=== PATIENT | female | born 1980 | race Caucasian/White ===

== ENCOUNTER 2020-04-12 08:29 | Outpatient (CLI) | payer BC, SELFPAY ==
--- NOTE | ~2020-04-12 | MMUS_ITS ---
EXAMINATION: MM diagnostic rehan BI w barbara, US breast LT limited HISTORY: Palpable lump at the 6:00 location of the left breast TECHNIQUE: Craniocaudal, mediolateral, and mediolateral oblique 3-D tomosynthesis images of the breas ts were performed and synthetic 2-D images were generated. CAD analysis was submitted and interpreted . High resolution limited left breast ultrasound was performed. COMPARISON: 05/09/2016, 02/05/2015, 04/29/2012 BREAST PARENCHYMAL COMPOSITION: The breasts are almost entirely fatty. FINDINGS: MAMMOGRAPHIC FINDINGS: Right breast: There is no evidence of suspicious mass, calcification, or architectural distortion to suggest malignancy. There has been no suspicious interval change. Left breast: There is a 1.4 x 0.5 cm equal density mass with indistinct margins at the 6:00 location 3.5 cm from the nipple corresponding to the palpable abnormality of concern. ULTRASOUND: There is a 1.6 x 0.6 cm oval, circumscribed, parallel, hypoechoic mass with internal vascularity at t he 6:00 location 4 cm from the nipple corresponding to the palpable abnormality of concern. IMPRESSION: 1. Suspicious left breast mass. 2. Ultrasound-guided biopsy is recommended. BI-RADS category 4, suspicious findings. Reviewed, dictated and finalized at location A. CTURAL DRAFTER IMPRESSION: 1. Suspicious left breast mass. 2. Ultrasound-guided biopsy is recommended. BI-RADS category 4, suspicious findings.
--- NOTE | ~2020-04-12 | US_ITS ---
EXAMINATION: US pelvic complete DATE: 04/12/2020 10:18 INDICATION: Menorrhagia Comparison:No prior studies for comparison. TECHNIQUE: Multiple transabdominal sonographic images of the pelvis performed. FINDINGS: The uterus measures 12.4 x 4.1 x 7.1 cm. The endometrial complex measures 6 mm. The right ovary measures 2.7 x 1.9 x 2.9 cm and the left ovary measures 3.3 x 2 x 3.4 cm. There are small follicles in each ovary. There is no free fluid in the pelvis. There are no abnormal masses seen on either side. IMPRESSION: 1. Normal pelvic ultrasound. Reviewed, dictated and finalized at location A. PROCESSING CHEMIST
== END 2020-04-12 08:30 ==
LOC: MICIMG 08:30
PROVIDERS: PCP Physician Assistant; Visit Provider Nurse Practitioner
DX: N63.20 Unspecified lump in the left breast, unspecified quadrant (principal); N92.0 Excessive and frequent menstruation with regular cycle; R92.8 Other abnormal and inconclusive findings on diagnostic imaging of breast
CPT/HCPCS: 76642; 76856; 77062; 77066; G0279

== ENCOUNTER 2020-04-12 08:33 | Outpatient (CLI) | payer BC, SELFPAY ==
--- NOTE | ~2020-04-12 | CT_ITS ---
EXAMINATION: CT abdomen pelvis wo con DATE: 04/12/2020 09:54 INDICATION: Right flank pain. Nausea. TECHNIQUE: Computed tomography (CT) of the abdomen and pelvis was performed without intravenous contr ast. Automated exposure control and iterative reconstruction technique were employed. Exam dose: 112 0.54 mGy-cm total exam DLP. COMPARISON: None. FINDINGS: The lung bases are clear of infiltrate or consolidation. Normal heart size. No pericardial or pleural effusion. Hepatic steatosis. No hepatic space-occupying mass lesion is evident. The gallbladder is present. No bile duct or pancreatic duct dilatation. No pancreatic mass lesion or calcification. Normal splenic s ize. Normal morphology of the adrenal glands. There is severe left hydronephrosis with very severe thinning of the left renal cortex. There is a la rge calculus at the left ureteropelvic junction measuring up to 9 x 13 x 19 mm dimension, with attenu ation of 1350 Hounsfield units. Several additional smaller calcifications of the left kidney are note d. There is moderate right hydronephrosis. There is a 13 x 13.5 x 22.6 mm right renal pelvic calculus wi th attenuation of approximately 900 Hounsfield units. 2. Additional approximately 8mm and 10 mm lower pole nonobstructing right renal calculi are noted. No ureteral calculus is noted on either side. Normal caliber of the abdominal aorta. No intraperitoneal or retroperitoneal or pelvic mass lesion or adenopathy or ascites. The uterus, adnexal areas and urinary bladder are unremarkable. No suspicious osteolytic or osteoblastic lesions. Degenerative spurring of the lower thoracic spine. Normal appendix. There is a medially situated cecum and appendix, consistent with retained cecal mese ntery. No bowel obstruction, bowel wall thickening, pneumatosis or intraperitoneal free air. IMPRESSION: 9 x 13 x 19 mm obstructing left renal pelvic calculus with severe left hydronephrosis, s evere thinning of the left renal cortex 13 x 13.5 x 22.6 mm right renal pelvic calculus with moderate right hydronephrosis Additional bilateral nonobstructing smaller renal calculi Hepatic steatosis Reviewed, dictated and finalized at Location A. Reviewed, dictated and finalized at location B. MENT CONTROL ASSISTANT IMPRESSION: 9 x 13 x 19 mm obstructing left renal pelvic calculus with severe left hydronephrosis, severe thinning of the left renal cortex 13 x 13.5 x 22.6 mm right renal pelvic calculus with moderate right hydronephro sis Additional bilateral nonobstructing smaller renal calculi Hepatic steatosis
== END 2020-04-12 08:34 ==
PROVIDERS: PCP Physician Assistant; Visit Provider Physician Assistant
DX: R10.9 Unspecified abdominal pain (principal); N20.0 Calculus of kidney; K76.0 Fatty (change of) liver, not elsewhere classified
CPT/HCPCS: 74176

== ENCOUNTER → 2020-06-06 11:48 | Outpatient (CLI) | payer BC, SELFPAY ==
--- NOTE | ~2020-06-06 | XR_ITS ---
EXAMINATION: XR abdomen/kub 1V INDICATION: Nephrolithiasis TECHNIQUE: Supine views of the abdomen were obtained on 2 radiographs. COMPARISON: 04/12/2020 FINDINGS: There are bilateral internal ureteral stents in expected position. There is a 7 mm stone or stone fragment adjacent to the proximal aspect of the left internal ureteral stent in the expected l ocation of the ureteropelvic junction. Stone fragments measuring up to 3 mm are seen in the left abisai l pelvis adjacent to the coiled portion of the stent. There are multiple stones or stone fragments in the lower poles of the kidneys. The largest conglomerate of stones or stone fragments in the left ki dney lower pole measures up to 2.3 cm. The largest on the right measures up to 1.9 cm. The bowel gas pattern is normal. IMPRESSION: 1. Bilateral internal ureteral stents with stones adjacent to the proximal aspect of the left interna l ureteral stent. 2. Bilateral nephrolithiasis. Reviewed, dictated and finalized at location A. PING CAR CONDUCTOR IMPRESSION: 1. Bilateral internal ureteral stents with stones adjacent to the proximal aspe ct of the left internal ureteral stent. 2. Bilateral nephrolithiasis.
== END ==
DX: N20.0 Calculus of kidney (principal); Z96.0 Presence of urogenital implants
CPT/HCPCS: 74018

== ENCOUNTER 2023-06-07 12:53 | Outpatient (CLI) | payer BC, SELFPAY ==
--- NOTE | ~2023-06-07 | US_ITS ---
EXAMINATION: US pelvic complete DATE: 06/07/2023 13:17 INDICATION: Abnormal uterine bleeding TECHNIQUE: Multiple transabdominal sonographic images of the pelvis were obtained. COMPARISON: 04/12/2020 FINDINGS: The uterus measures 11.3 x 4.5 x 6.2 cm. The endometrial complex measures 4 mm. The right o vary measures 4.9 x 2.8 x 3.5 cm. The left ovary measures 3.2 x 2.6 x 1.8 cm. There is normal vascula r flow in the ovaries. There is no free fluid in the pelvis. IMPRESSION: 1. No sonographic correlate for the patient's symptoms. Reviewed, dictated and finalized at location F. TY COURT CLERK
== END 2023-06-07 12:54 ==
LOC: MICIMG 12:54
PROVIDERS: PCP Physician Assistant; Visit Provider Nurse Practitioner
DX: N93.8 Other specified abnormal uterine and vaginal bleeding (principal); R10.2 Pelvic and perineal pain
CPT/HCPCS: 76830; 76856

== ENCOUNTER → 2023-07-01 01:48 | Day surgery (SDC) | payer BC, SELFPAY ==
[2023-06-24 09:43] VITALS: BMI 32.3
--- NOTE | 2023-06-24 09:53 | SUR.PREOP ---
Report to the Outpatient Waiting Room, entrance under the green pavilion located off [facility], at time 0900 on date 07/01/23. Planned Procedure Time: 1100. Time changes happen often and if your time is changed the preop area will call you the afternoon before. - You and your visitor will be asked to self-screen and do not enter if you have any COVID symptoms. - A mask is optional within the hospital at this time. Patients may have clear liquids (water, carbonated beverages, clear teas, apple juice) until 3 hours prior to surgery with a maximum of 20 ounces. - No food from midnight until time of surgery Before 0800 am - Infants may have breast milk until 4 hours before surgery, infant formula 6 hours prior to surgery. - Children will be allowed to drink immediately following surgery. If applicable, please bring a bottle or sippy cup to assist with drinking. Juice, water, soda, and popsicles are readily available. For infants on formula, please bring formula the day of surgery. Pacifiers are allowed. Take the following medications with a SIP of water the morning of surgery: ___metoprolol DO NOT STOP ANY OF YOUR OTHER PRESCRIPTION MEDICATIONS PRIOR TO SURGERY ?EXCEPT THE FOLLOWING Medications to discontinue per physician ___losartin day of surgery. supplements and vitamins 3 days prior to surgery__ Date to take last dose Please no make-up, nail frisian, hairspray, perfume, deodorant, or body powder the day of surgery. No jewelry (including any body piercings) or valuables the day of surgery, leave them at home. Please take a shower or bath the night before, or the morning of, surgery with an antibacterial soap. Wear comfortable, loose fitting clothing. Children are encouraged to wear pajamas. - Jewelry must be removed prior to entering the operating room. Rings and piercings that are not removed may be cut off. - The hospital will not accept responsibility for valuables. - Please leave all valuables, including medications, at home the day of surgery. If you are going home after surgery, a licensed nascar driver must drive you home. - NO public transportation without another adult if you receive anesthesia. - We recommend that an adult stay with you for 24 hours following discharge. - We also recommend that you do not drive, make important decision, drink alcoholic beverages, or take any drugs that were not prescribed by your health care provider for at least 24 hours after your discharge time. For Pediatric surgeries, we recommend two adults accompany the child home. Follow any additional instructions given to you from your surgeon. If you or anyone in your household have experienced Covid symptoms in the past week, please notify your surgeon or the nurse liaison at the phone number below for possible testing. Telephone instructions given to patient and asked if any additional questions and then verbalized understanding. Patient advised to call surgeon office or pre surgery nurse liaison [phone] if any additional questions.
--- NOTE | 2023-07-01 09:20 | WPDHPUPDATE1 ---
History and Physical Update Update Date/Time: 07/01/23 09:20 History and Physical has been reviewed, including an updated exam of the patient. There are NO changes in the patient's condition. Risks, benefits, and alternatives have been discussed and questions answered. Patient agrees to proceed with procedure.
--- NOTE | 2023-07-01 09:21 | P.HP_ITS ---
History of Present Illness History of Present Illness Consent: Risks, benefits, and alternatives have been discussed and questions answered. Patient agrees to proceed with procedure. Chief complaint: Menorrhagia Narrative: Kimberlee Banda is a 43 year old female with frequent and heavy cycles. Pelvic ultrasound was normal. It was recommended to undergo D&C hysteroscopy. Risks of infection, bleeding, perforation, and possible pathology are discussed. Patient voices understanding and agrees to proceed. Review of Systems Review of Systems: not repeated day of surgery; patient states no changes in status [facility] Past Medical History Medical History (Updated 07/01/23 @ 09:25 by Kimberlee Contreras MD) Borderline diabetes BRCA2 gene mutation positive HTN (hypertension) Surgical History Surgical History (Updated 07/01/23 @ 09:24 by Kimberlee Contreras MD) History of bilateral breast reduction surgery History of x2 History of gastric restrictive surgery gastric sleeve June of 2021 History of left breast biopsy Hx of ALINE Social History Social History Smoking status: Never smoker Living arrangements: with family Meds Home Medications and Allergies Home Medications Medication Instructions Recorded Confirmed Type calcium citrate 150 mg capsule 150 mg PO BID 06/24/23 06/24/23 History ferrous sulfate 325 mg (65 mg 325 mg PO BID 06/24/23 06/24/23 History iron) tablet losartan 100 mg tablet 100 mg PO DAILY 06/24/23 06/24/23 History metoprolol succinate 200 mg 200 mg PO DAILY 06/24/23 06/24/23 History tablet,extended release 24 hr multivitamin 1 tablet PO DAILY 06/24/23 06/24/23 History vitamin B complex 1 tablet PO DAILY 06/24/23 06/24/23 History vortioxetine 10 mg tablet 10 mg PO HS 06/24/23 06/24/23 History (Trintellix) zolpidem 10 mg tablet 10 mg PO HS PRN Sleep 06/24/23 06/24/23 History Allergies Allergy/AdvReac Type Severity Reaction Status Date / Time prochlorperazine Allergy Intermediate ANXIETY Unverified 06/18/16 16:06 morphine Allergy Unknown ITCHING Verified 06/18/16 16:06 Exam Const: General: healthy appearing and alert Orientation/consciousness: patient oriented x3 Resp: Effort & Inspection: normal respiratory effort : External Female Exam: normal external appearance Speculum Exam - Vagina: normal appearance of the vagina and normal vaginal discharge Speculum Exam - Cervix: normal appearance of the cervix Bimanual exam- vagina & uterus: uterine size normal and consistency normal Bimanual Exam- Adnexa, other: normal adnexae and No adnexal tenderness Neuro: General: patient oriented x3 Assessment and Plan Assessment and plan (1) Menorrhagia: Code(s): N92.0 - Excessive and frequent menstruation with regular cycle Status: Acute Assessment and Plan: plan to proceed with D&C hysteroscopy
[2023-07-01] MEDS: ACETAMINOPHEN 500 MG TABLET 1000 MG PO (09:47)
[2023-07-01 09:57] VITALS: BP 103/60; PULSE 87; RESP 18; TEMP 37.1; O2SAT 100
--- NOTE | 2023-07-01 10:07 | P.PNAN_ITS ---
Anes - Initial Pre Proc Eval Procedure: Operation Date: 07/01/23 11:00 Proposed Procedures p Hysteroscopy Dilation and Curettage - Kimberlee Contreras MD Date/Time: 07/01/23 10:07 Surgeon: Kimberlee Contreras MD Pre Op Diagnosis: Menorrhagia Patient Data Age: 43 Gender: F Height: 1.68 m Weight: 94.2 kg Last Vital Signs Temp 37.1 C 07/01/23 09:57 Pulse 87 07/01/23 09:57 Resp 18 07/01/23 09:57 BP 103/60 07/01/23 09:57 Pulse Ox 100 07/01/23 09:57 O2 Del Method Room Air 07/01/23 09:57 Allergies Allergy/AdvReac Type Severity Reaction Status Date / Time prochlorperazine Allergy Intermediate ANXIETY Unverified 07/01/23 09:32 morphine Allergy Unknown ITCHING Verified 07/01/23 09:32 OYSTERS Allergy Severe Swelling Uncoded 07/01/23 10:02 of Lip/Tongue/Throat Home Medications Medication Instructions Recorded Confirmed Type calcium citrate 150 mg capsule 150 mg PO BID 06/24/23 07/01/23 History ferrous sulfate 325 mg (65 mg 325 mg PO BID 06/24/23 07/01/23 History iron) tablet losartan 100 mg tablet 100 mg PO DAILY 06/24/23 07/01/23 History metoprolol succinate 200 mg 200 mg PO DAILY 06/24/23 07/01/23 History tablet,extended release 24 hr multivitamin 1 tablet PO DAILY 06/24/23 07/01/23 History vitamin B complex 1 tablet PO DAILY 06/24/23 07/01/23 History vortioxetine 10 mg tablet 10 mg PO HS 06/24/23 07/01/23 History (Trintellix) zolpidem 10 mg tablet 10 mg PO HS PRN Sleep 06/24/23 07/01/23 History Patient hx anesthesia problems: none Family hx anesthesia problems: none Results Review: All pre-operative results and documents have been reviewed as part of the pre- operative evaluation. [facility] Past Medical History Medical History Borderline diabetes BRCA2 gene mutation positive HTN (hypertension) Surgical History Surgical History History of bilateral breast reduction surgery History of x2 History of gastric restrictive surgery gastric sleeve June of 2021 History of left breast biopsy Hx of LASIK Social History Social History Smoking status: Never smoker Living arrangements: with family Yulis - Sammy Final PreProcedure Day of Procedure 07/01/23 10:07 Patient weight: obese Heart: regular rate and rhythm Lungs: clear to auscultation Airway: Mallampati scale class II Neurological: alert and oriented Last oral intake: >/= 8 hours ASA classification: III Emergent: no Anesthetic plan: proceed Anesthesia type and monitoring: general and standard monitoring Results Review: All pre-operative results and documents have been reviewed as part of the pre- operative evaluation. Informed Consent: The patient's anesthetic plan and its attendant risks and benefits were discussed with the patient/family/POA. Questions were solicited and answers provided to the satisfaction of the patient/family/POA.
[2023-07-01] MEDS: KETOROLAC 30 MG/ML VIAL (*BKC) IV PUSH (11:01)
--- NOTE | 2023-07-01 11:03 | P.OP_ITS ---
Procedure Note - Detailed Date of Procedure 07/01/23 Pre-op Diagnosis Menorrhagia Post-op Diagnosis Same Procedure Performed hysteroscopy with endometrial resection Surgeon Kimberlee Contreras MD Anesthesia MAC Findings the endometrial cavity is severely anteverted; the endometrium appears grossly Description of Procedure The patient is taken to the operating room and placed under anesthesia in the dorsal lithotomy position. She was prepped and draped in the usual sterile fashion. [place] speculum was placed in the vagina and the cervix grasped on the anterior lip with a tenaculum. Uterus is attempted to be sound but internal cervical stenosis is encountered at 3cm. The hysteroscope was used to hydrodissect into the endometrial cavity. The patient had to be moved down on the surgical table in order to allow the angle of the camera. In order to get the camera into the endometrial cavity the angle was at a [id number]?. Due to the severe angle, decision was made to use the small resection device to sample the endometrium. I did not feel the sharp curette would safely enter the cavity. Under direct visualization the endometrium is biopsied throughout with the Aveeta resection device. All instruments were then removed. Using the camera at the fundus and marking the external os, the uterus sounds to 9cm. The sponge, needle, and instrument counts are correct per the OR staff. The patient is taken to recovery in stable condition. Estimated Blood Loss 5 Drains No Packing No Pathology Yes ( Endometrial shavings) Complications Other complications ( due to the severe angle of the uterus, the patient is a poor candidate for an ablation or IUD) Condition Stable Disposition PACU
[2023-07-01 11:05] VITALS: BP 101/55; PULSE 80; RESP 16; O2SAT 95
[2023-07-01] MEDS: LACTATED RINGERS 1,000 ML 30 ML IV CONT (11:15)
[2023-07-01 11:30] VITALS: BP 102/65; PULSE 80; RESP 16
[2023-07-01] MEDS: oxyCODONE HCL (*CRX) 5 MG TAB IR PO (11:34)
== END | disposition home or self-care (01) ==
PROVIDERS: PCP Physician Assistant; Visit Provider Obstetrics & Gynecology Gynecology
PROC: 0U5B8ZZ Destruction of Endometrium, Via Natural or Artificial Opening Endoscopic (ICD-10-PCS; CPT 58563; principal; 2023-07-01 11:00)
DX: N92.0 Excessive and frequent menstruation with regular cycle (principal); I10 Essential (primary) hypertension; R73.03 Prediabetes; E66.9 Obesity, unspecified; Z68.33 Body mass index [BMI] 33.0-33.9, adult; Z98.890 Other specified postprocedural states; Z98.84 Bariatric surgery status
CPT/HCPCS: 58558; 88305; A9270; J1100; J1885; J2250; J2405; J2704; J3010; J7120